=== PATIENT | male | born 1965 | race Caucasian/White ===

== ENCOUNTER 2025-04-30 14:54 | Outpatient (AMB) | payer MEDICARE, SELFPAY ==
--- NOTE | 2025-04-30 14:56 | MHC.PC.OV ---
Vital Signs 04/30/25 15:04 Height 6 ft 1 in Weight 202 lb BMI 26.6 BP 111/63 Blood Pressure Location Lt brachial Position Sitting Respiration 16 Pulse 81 Pulse Source Pulse Oximeter Temp 98.2 F Temp Source Oral Pulse Oximetry (%) 96 Oxygen Delivery Method Room Air Intake Visit Reasons: requesting colonoscopy referral Intake Note: patient here for new patient visit and wants a colonoscopy referral Cash Management Associate Required: No Allergies Tetracycline HCl Allergy (Unknown, Uncoded 04/30/25 15:24) rash Medication List - Last Reconciled 04/30/25 by Danyell Jensen CNP lisinopril 10 mg PO DAILY metoprolol tartrate 25 mg PO BID rosuvastatin 20 mg PO BEDTIME Tobacco use date assessed: 04/30/25 Dental Screening Dental Screen Date: 04/30/25 Did you have a dental visit in the last 12 months?: No Did you have a dental problem in the last 6 months where you did not have access to dental care?: No Was dental information given to patient?: Patient has dentist HPI HPI Comments History of Present Illness Details 59-year-old male presents to establish care. He admits to taking his medications as prescribed without adverse reactions. He notes that he is establishing care only to have a colonoscopy done. He had a normal colonoscopy 7 years ago. His mother has history of colon cancer and therefore he gets colonoscopy every 5 years. He notes that his health plan would not cover colonoscopy with his former PCP. He does not want a physical exam today. He also declines to have blood work done. He notes that he is not planning to follow-up here, and would not schedule a follow-up appointment today as recommended. He states that he may follow-up with his former PCP. Prior PCP? - Dr. Perdomo, [facility], [place] Last office visit/CPE/labs - Over a year ago Acute issue(s) - None Past Medical History - Hypertension, hyperlipidemia, PVD, Myopia, hyperopia, fatty liver, major depressive disorder, schizoaffective disorder, sinusitis, hiccough, alcohol dependence Surgical History - Coronary artery stent Family History - Mom: colon cancer Social History - Smokes half a pack of cigarettes daily and has been smoking that much for about 20-25 years. Does not vape. Drinks 1.75 liters of wine every 3 days. Denies recreational drug use - Has been making healthy dietary choices. Walks regularly. Difficulty falling asleep but able to maintain sleep, sleeps an average of 4-5 hours nightly, does not know if he snores, lives alone and never had a sleep study Health maintenance - Last eye exam was over 2 years ago. Declines referral at this time. Encouraged to follow-up with ophthalmology for routine eye exam - Last dental visit was over 2 years ago; encouraged to schedule an appointment with his dentist for routine dental care. - Last tetanus vaccine was about a year ago. Record not currently available. - Has not been vaccinated for the flu this season; declines vaccination - He is unsure of shingles vaccine. Will review his old medical record onces available - Last colonoscopy was 7 years ago at [facility]. Normal. Record not currently available. Referred to [facility] [place] gastroenterology for a colonoscopy [facility] - last visit was a year ago [facility] Medical History (Updated 05/02/25 @ 12:05 by Danyell Jensen CNP) Depression Fatty liver Sinusitis Surgical History (Updated 04/30/25 @ 15:09 by Sheryl Borges MA) History of heart artery stent Family History (Updated 04/30/25 @ 15:51 by Sheryl Borges MA) Father Colon cancer Social History (Updated 04/30/25 @ 15:04 by Sheryl Borges MA) Housing: Apartment Patient Tobacco Use Status: Current everyday Tobacco user Cigarettes Per Day: 10 e-Cigarette/Vaping Use: Never Used Second Hand Smoke Exposure: Yes Substance Use Type: Marijuana service: No Current occupational status: unemployed Current occupational exposures/hazards: No Cognitive needs: No Hearing needs: No Vision needs: Yes Questionnaire PHQ-9 Over the last 2 weeks, how often have you been bothered by any of the following problems? 1. Little interest or pleasure in doing things: not at all 2. Feeling down, depressed, or hopeless: not at all 3. Trouble falling or staying asleep, or sleeping too much: not at all 4. Feeling tired or having little energy: several days 5. Poor appetite or overeating: not at all 6. Feeling bad about yourself - or that you are a failure or have let yourself or your family down: not at all 7. Trouble concentrating on things, such as reading the newspaper or watching television: not at all 8. Moving or speaking so slowly that other people could have noticed. Or the opposite - being so fidgety or restless that you have been moving around a lot more than usual: not at all 9. Thoughts that you would be better off or of hurting yourself in some way: not at all Total score: 1 Depression Screening Interpretation: Negative Depression Screening Done: Yes 55168 - PHQ-9 Billing: Yes Source: Developed by Drs. Toby Clarke, Gale Garcia, Cleveland Avalos and colleagues, with an educational tommy from [employer]. Thrive Questionnaire Date Thrive assessed: 04/30/25 I am a: Patient What is your living situation today?: I have a steady place to live Within the past 12 months, did the food you bought not last and you didn't have the money to get more?: Sometimes True Within the past 12 months, did you worry whether your food would run out before you got money to buy more?: Sometimes True Do you have trouble paying for medicines?: No Do you have trouble getting transportation to medical appointments?: No Do you have trouble paying your heating and electricity bill?: No Do you have trouble taking care of your child, family member or friend?: No Do you have trouble with day-to-day activities such as bathing, preparing meals, shopping, managing finances, etc.?: No Are you currently unemployed and looking for a job?: Yes Are you interested in more education?: No Please select the resources that you would like help with: Food and Job search/training Currently or been in a relationship where the following occur: No concerns reported THRIVE Score: 2 AUDIT C Alcohol Use Questionnaire (AUDIT-C) 1. How often do you have a drink containing alcohol?: 2-4 times a month 2. How many drinks containing alcohol do you have on a typical day when you are drinking?: 3 or 4 3. How often do you have six or more drinks on one occasion?: Less than monthly Total Score: 4 Score Reviewed/Action Taken: Yes YAZAN-7 AMB Questionnaire YAZAN-7 Date YAZAN - 7 assessed: 04/30/25 Feeling nervous, anxious, or on edge: 0 = Not at all Not being able to stop or control worryin = Not at all Worrying too much about different things: 0 = Not at all Trouble relaxin = Not at all Being so restless that it is hard to sit still: 0 = Not at all Becoming easily annoyed or irritable: 0 = Not at all Feeling afraid as if something awful might happen: 0 = Not at all Total YAZAN-7 score (0-4 normal; 5-9 mild; 10-14 moderate; 15-21 severe): 0 Source: Developed by Drs. Toby Clarke, Gale Garcia, Cleveland Avalos and colleagues, with an educational tommy from [employer]. YAZAN-7 Assessment Billing YAZAN-7 Assessment Tool: YAZAN-7 Assessment 06153 Review of Systems Const Details: Const Denies chills, Denies fatigue, Denies fever(s), Denies headache(s) and Denies weakness ENT Denies dizziness and Denies headache(s) Card Denies chest pain, Denies lightheadedness, Denies dyspnea and Denies other (Palpitations) Resp Denies cough, Denies dyspnea, Denies wheezing and Denies other ( shortness of breath) GI Denies abdominal pain, Denies melena, Denies hematochezia, Denies change in bowel habits, Denies dyspepsia and Denies nausea Denies hematuria and Denies dysuria Musc Denies abnormal gait, Denies myalgias, Denies arthralgias, Denies numbness and Denies tingling Skin/Breast Denies rash, Denies unusual bruising and Denies wounds Neuro Denies abnormal gait, Denies dizziness, Denies headache(s), Denies memory loss, Denies numbness, Denies Sensory deficit (Neuro), Denies tingling and Denies weakness Psych Denies anxiety, Denies depression, Denies memory loss Endo Denies cold intolerance, Denies fatigue, Denies heat intolerance, Denies polydipsia and Denies polyuria Aller/Immun Denies wheezing Physical exam (Primary Care) Vital Signs: Last Vital Signs Temp 98.2 F 04/30/25 15:04 Pulse 81 04/30/25 15:04 Resp 16 04/30/25 15:04 BP 111/63 04/30/25 15:04 Pulse Ox 96 04/30/25 15:04 Oxygen Delivery Method Room Air 04/30/25 15:04 BMI result Body Mass Index 26.6 Tobacco/Smoking Status: Tobacco use Status Tobacco use date assessed 04/30/25 04/30/25 15:04 Patient Tobacco Use Status Current everyday Tobacco 04/30/25 15:04 e-Cigarette/Vaping Use Never Used 04/30/25 15:04 PHQ-9: PHQ-9 Score PHQ-9: Total score 1 04/30/25 15:51 Depression Screening Interpretation: Negative Thrive Assessment: Date of Thrive Assessment Date Thrive assessed 04/30/25 04/30/25 15:00 Currently or been in a relationship where the following occur: No concerns reported Const Other: General: no acute distress and well developed Nutritional Appearance: well nourished Orientation/consciousness: patient oriented x3 HENMT Head: Yes normocephalic and Yes atraumatic Eyes General: appearance normal, both eyes and all related structures Pupils: Equal, round and reactive pupils present EOM: EOMs intact bilaterally Resp Effort & Inspection: normal respiratory effort Auscultation: clear to auscultation bilaterally Cardio Rate: regular rate Rhythm: regular rhythm Heart sounds: S1 normal heart sound present, S2 normal heart sound present, no gallops, no murmurs and no rubs GI Palpation (GI): No Abdominal aortic bruit present, Soft to palpation, nontender, No hepatosplenomegaly present and No Rebound tenderness present Auscultation: normal bowel sounds General: Yes no CVA tenderness Back/Spine/Pelvis Back: no CVA tenderness Cervical Spine: cervical ROM normal and No Cervical spine tenderness Thoracic/Lumbar Spine: thoraco-lumbar ROM normal, No pain with thoraco-lumbar ROM, No thoracic spinal tenderness and No lumbar spinal tenderness Extrem General: Yes normal to inspection, No edema and No calf tenderness Skin General: warm and dry. Normal skin color. Normal skin turgor Lesions: no lesions Rashes: no rashes Trauma: no lacerations or abrasions Wounds: no wounds Nails: normal Neuro General: patient oriented x3, gait normal and no focal neuro deficit Cranial nerves: Yes Equal, round and reactive pupils present Cognition (Neuro): normal cognition Gait exam (Neuro): Normal gait present Sensory Exam: No Sensory deficit (Neuro) Psych Appearance: grossly normal Affect: normal affect Attitude: cooperative Thought process: Normal thought process present Coding Level of Care Code New Pt Level 4 (46773) Diagnoses Hypertension I10 Hyperlipidemia E78.5 Smoking 1/2 pack a day or less F17.210 Colon cancer screening Z12.11 Additional Codes YAZAN-7 Assessment Billing - YAZAN-7 Assessment Tool: YAZAN-7 Assessment 29508 ([id number]) PHQ-9 - 96526 - PHQ-9 Billing: Yes ([id number]) Assessment & Plan Assessment & Plan (1) Hypertension: Code(s): I10 - Essential (primary) hypertension Category: Medical Plan: Blood pressure is controlled, 111/63. Continue current treatment regimen. Low-sodium diet encouraged. Verbalized understanding and agreed with the plan. (2) Hyperlipidemia: Code(s): E78.5 - Hyperlipidemia, unspecified Category: Medical Plan: Continue current treatment regimen. Advised to limit foods high in saturated fat and avoid foods high in trans fat. Routine exercise encouraged. Verbalized understanding and agreed with the plan. (3) Smoking 1/2 pack a day or less: Code(s): F17.210 - Nicotine dependence, cigarettes, uncomplicated Category: Social Hx Plan: He smokes half a pack of cigarettes daily and has been smoking that much for about 20-25 years. Instructed on the health risks and complications of cigarette smoking and cessation encouraged. Declines medication treatment for smoking cessation at this time. Encouraged to follow-up as needed. Verbalized understanding and agreed with the plan. (4) Colon cancer screening: Code(s): Z12.11 - Encounter for screening for malignant neoplasm of colon Category: Medical Plan: His last colonoscopy was 7 years ago at [facility]. Normal. Record not currently available. Referred to [facility] gastroenterology for a colonoscopy. Orders: Referrals Gastroenterology Referral Z12.11 - Encounter for screening for malignant neoplasm of colon Patient Instructions: Encouraged to continue current treatment regimen and follow-up with cardiology as planned. Regarding is wine intake, instructed on the health risks and complications of excessive alcohol intake. Encouraged to cut down on his wine intake. No more than 2 glasses daily or 5 weekly. Verbalized understanding and agreed with the plan.
[2025-04-30 15:04] VITALS: BP 111/63; PULSE 81; RESP 16; TEMP 36.8; O2SAT 96; BMI 26.6
== END 2025-04-30 16:03 | disposition home or self-care (01) ==
LOC: HO.HMCFM 14:54
PROVIDERS: PCP Nurse Practitioner Family; Visit Provider Nurse Practitioner Family
DX: I10 Essential (primary) hypertension (principal); E78.5 Hyperlipidemia, unspecified; F17.210 Nicotine dependence, cigarettes, uncomplicated; Z12.11 Encounter for screening for malignant neoplasm of colon

== ENCOUNTER → 2025-04-30 14:54 | Outpatient (BNVA) | payer MEDICARE, SELFPAY | PROVIDERS: PCP Nurse Practitioner Family; Visit Provider Nurse Practitioner Family | DX: Z76.89 Persons encountering health services in other specified circumstances (principal); I10 Essential (primary) hypertension; E78.5 Hyperlipidemia, unspecified; F17.210 Nicotine dependence, cigarettes, uncomplicated; Z13.30 Encounter for screening examination for mental health and behavioral disorders, unspecified; Z13.31 Encounter for screening for depression | CPT/HCPCS: 96127; 99202 ==